=== PATIENT | male | born 1990 | race Caucasian/White ===

== ENCOUNTER 2017-08-10 11:20 | Emergency (ER) | payer MEDICAID ==
[~2017-08-10] VITALS: Ht 162.6 cm; Wt 57.6 kg
[2017-08-10 11:25] VITALS: Ht 162.6 cm; Wt 57.6 kg
[2017-08-10 15:28] VITALS: BP 112/71
== END 2017-08-10 15:28 | disposition home or self-care (01) ==
LOC: ED 11:20
DX: L03.012 Cellulitis of left finger (principal)
CPT/HCPCS: J2001